=== PATIENT | male | born 1960 | race Two or more races ===

== ENCOUNTER 2019-05-17 22:02 | Emergency (ER) | payer OTHER ==
[~2019-05-17] VITALS: Ht 165.1 cm; Wt 77.1 kg
--- NOTE | 2019-05-17 22:30 | NUR ---
C/C L SIDED CP RADIATING TO L BACK X3DAYS, SOB X3WKS, -N/V, INTERMITTENT DIZZINESS. STATES PAIN 6/10 AND FEELS LIKE PRESSURE. NO ACUTE DISTRESS NOTED. SKIN INTACT, FAMILY AT BEDSIDE. ON MONITOR AND READY FOR EVAL.
[2019-05-17 22:56] LABS: BASOPHILS # (AUTO) 0.1 /CMM (0.0-0.2); BASOPHILS % (AUTO) 1.3 % (0.0-2.0); EOSINOPHILS % (AUTO) 4.2 % (0.0-6.0); HEMATOCRIT 41 % (39-51); HEMOGLOBIN 14.2 g/dL (13.5-17.5); LYMPHOCYTES # (AUTO) 3.3 /CMM (0.8-4.8); LYMPHOCYTES % (AUTO) 42.7 % (20.0-44.0); MEAN CORPUSCULAR HGB CONC 35 g/dl (31.0-36.0); MEAN CORPUSCULAR VOLUME 87 fL (80-96); MONOCYTES # (AUTO) 0.7 /CMM (0.1-1.30); MONOCYTES % (AUTO) 9.1 % (2.0-12.0); NEUTROPHILS # (AUTO) 3.3 /CMM (1.8-8.9); NEUTROPHILS % (AUTO) 42.7 % (43.0-81.0); PLATELET COUNT (AUTO) 262 /CMM (150-450); RED BLOOD CELL COUNT(AUTO) 4.69 MIL/uL (4.5-6.0); WHITE BLOOD COUNT (AUTO) 7.8 K/uL (4.3-11.0)
[2019-05-17] MEDS ORDERED: NITROGLYCERIN 0.4 MG/TAB BOTTLE SL ONE (23:00)
[2019-05-17] MEDS ORDERED: ASPIRIN 325 MG TABLET PO ONE (23:00)
[2019-05-17] MEDS ORDERED: ASPIRIN 325 MG TABLET ONE (23:01)
[2019-05-17] MEDS ORDERED: NITROGLYCERIN 0.4 MG/TAB BOTTLE ONE (23:01)
[2019-05-17 23:05] LABS: CALCIUM, SERUM 9.1 mg/dL (8.5-10.1); CARBON DIOXIDE 26 mmol/L (21-32); CHLORIDE 105 mmol/L (98-107); CREATININE 1.1 mg/dL (0.6-1.3); GLUCOSE 128 mg/dL (74-106); POTASSIUM 4.1 mmol/L (3.5-5.1); SODIUM SERUM 141 mmol/L (136-145); UREA NITROGEN, BLOOD 18 mg/dL (7-18)
[2019-05-17 23:18] LABS: ALANINE AMINOTRANSFERASE 40 U/L (12-78); ALBUMIN 3.5 g/dL (3.4-5.0); ALKALINE PHOSPHATASE 54 U/L (46-116); ASPARTATE AMINOTRANSFERASE 20 U/L (15-37); B-TYPE NATRIURETIC PEPTIDE 47 PG/ML (0-125); BILIRUBIN,DIRECT 0.1 mg/dL (0.0-0.2); BILIRUBIN,TOTAL 0.2 mg/dL (0.2-1.0); TOTAL PROTEIN, SERUM 6.8 g/dL (6.4-8.2)
[2019-05-17 23:28] LABS: D-DIMER 0.2 mg/L(FEU (0.17-0.50)
--- NOTE | 2019-05-17 23:31 | NUR ---
IV ACCESS OBTAINED. PT LASHONDA WELL.
[2019-05-17] MEDS ORDERED: IOHEXOL-350 100 ML VIAL IV ONE (23:44)
[2019-05-18] MEDS ORDERED: MORPHINE SULFATE INJ 2 MG/ML DISP.SYRIN IV ONE (01:00)
[2019-05-18] MEDS ORDERED: ONDANSETRON HCL/PF - ER 4 MG/2 ML VIAL IV ONE (01:00)
[2019-05-18] MEDS ORDERED: NITROGLYCERIN PACKET 1 GM PACKET TOP ONE (01:00)
[2019-05-18] MEDS ORDERED: ONDANSETRON HCL/PF 4 MG/2 ML VIAL ONE (01:07)
[2019-05-18] MEDS ORDERED: MORPHINE SULFATE INJ 4 MG/ML DISP.SYRIN ONE (01:07)
[2019-05-18] MEDS ORDERED: NITROGLYCERIN PACKET 1 GM PACKET ONE (01:08)
--- NOTE | 2019-05-18 04:45 | NUR ---
CALL FROM [facility], TRYING TO FIND BEDS AVAILABLE AT [facility] AT THIS TIME. WILL CONTINUE TO SEARCH.
[2019-05-18] MEDS ORDERED: IV NS 0.9% 1,000 ML BAG IV ONE (05:30)
--- NOTE | 2019-05-18 06:03 | NUR ---
ACCEPTED TO [facility]. NUMBER FOR REPORT [phone]. [id number] ETA [id number].
--- NOTE | 2019-05-18 06:11 | NUR ---
REPORT GIVEN TO HUYEN MARIANO.
[2019-05-18 06:36] VITALS: BP 113/81
--- NOTE | 2019-05-18 08:00 | NUR ---
REPORT GIVEN TO EMT. NO DISTRESS NOTED. A/OX4, BREATHING EVEN ANDUNLABORED, VSS. NAD. TRANSFERRED TO [facility].
== END 2019-05-18 08:00 | disposition short-term general hospital (02) ==
LOC: ER 22:05
DX: R07.89 Other chest pain (principal); R06.00 Dyspnea, unspecified; I10 Essential (primary) hypertension
CPT/HCPCS: 36415; 71045; 71275; 80048; 80076; 83880; 84484; 85025; 85378; 85730; 93005; 96374; 96375; 99285; J2270; J2405; J7030; Q9967